=== PATIENT | female | born 1985 | race Caucasian/White ===

== ENCOUNTER 2021-07-12 08:07 | Day surgery (SDC) | payer MEDICAID ==
[2021-07-03 15:02] LABS: BASOPHILS % (AUTO) 0.6 % (0-1); EOSINOPHILS # (AUTO) 0.2 X10'3 (0-0.9); EOSINOPHILS % (AUTO) 3.1 % (0-6); LYMPHOCYTES # (AUTO) 1.6 X10'3 (1.1-4.8); LYMPHOCYTES % (AUTO) 25.5 % (21-51); MEAN CORPUSCULAR HEMOGLOBIN 26.6 PG (27.0-31.0); MEAN CORPUSCULAR HGB CONC 32.5 g/dL (33.0-36.5); MEAN CORPUSCULAR VOLUME 81.8 FL (78-98); MEAN PLATELET VOLUME 10.8 FL (7.4-10.4); MONOCYTES # (AUTO) 0.5 X10'3 (0-0.9); MONOCYTES % (AUTO) 7.8 % (2-12); NEUTROPHILS # (AUTO) 4.1 X10'3 (1.8-7.7); PRE OP HEMATOCRIT 40.9 % (35.0-45.0); PRE OP HEMOGLOBIN 13.3 g/dL (12.0-16.0); PRE OP PLATELET COUNT 240 X10'3 (140-440); RED CELL DISTRIBUTION WIDTH 12.7 % (11.5-14.5)
[2021-07-03 15:14] LABS: ALBUMIN 3.6 G/DL (3.4-5.0); ALBUMIN/GLOBULIN RATIO 0.9 (1.1-1.5); ALKALINE PHOSPHATASE 106 IU/L (46-116); BLOOD UREA NITROGEN 13 MG/DL (7-18); BUN/CREATININE RATIO 15.9 (6.6-38.0); CALCIUM 8.9 MG/DL (8.5-10.1); CHLORIDE 105 MMOL/L (99-107); CREATININE 0.82 MG/DL (0.40-0.90); PRE OP ALT 24 U/L (30-65); PRE OP ANION GAP 13 (8-16); PRE OP AST 7 U/L (10-37); PRE OP BILIRUB, TOTAL 0.2 MG/DL (0.0-1.0); PRE OP POTASSIUM 3.9 MMOL/L (3.4-5.1); PRE OP SODIUM 142 MMOL/L (135-145); TOTAL CARBON DIOXIDE 23.8 MMOL/L (24-32); TOTAL PROTEIN 7.8 G/DL (6.4-8.2); eGFR 78 ML/MIN
[2021-07-03 15:21] LABS: PRE OP GLUCOSE 219 MG/DL (70-104)
[2021-07-03 15:25] LABS: HCG SERUM QL NEGATIVE
[2021-07-12] VITALS (7 sets, daily range): BP systolic 114–136; BP diastolic 69–79
[~2021-07-12] VITALS: Ht 177.8 cm; Wt 133.4 kg
[~2021-07-12 08:07] MED LIST: ALBU18HF2 INH; BACL20TA7 PO; DIF150T PO; DOCU-345 PO; HYDR50TA65 PO; IBUP-1986 PO; METF-1203 PO; MONT-40 PO; PER5325T PO; SERT-433 PO; albuterol 2.5 MG/3 ML nebule NEB ONE; famotidine 20mg tablet PO ONE; ringers solution, lacted 1,000 ML IV SCH
[2021-07-12] MEDS ORDERED: morphine 2 MG/ML inj. syringe IV PRN (08:30)
[2021-07-12] MEDS ORDERED: ringers solution, lacted 1,000 ML IV SCH (08:30)
[2021-07-12] MEDS ORDERED: meperidine/PF 25mg/ml syringe IV PRN ×3 (08:30)
[2021-07-12] MEDS ORDERED: ondansetron/PF 4mg/2ml inj IV PRN (08:30)
[2021-07-12] MEDS ORDERED: morphine 4 MG/ML inj SYRINge IV PRN (08:30)
[2021-07-12] MEDS ORDERED: proCHLORperazine 10 MG/2 ml inj IV PRN (08:30)
[2021-07-12] MEDS ORDERED: BUPIVAcaine 0.5% inj/PF 30 ML ONE (11:37)
[2021-07-12] MEDS ORDERED: ketorolac trometh. 30mg/ml inj. ONE (11:48)
[2021-07-12] MEDS ORDERED: sevoflurane 250ml liquid IH ONE (11:48)
[2021-07-12] MEDS ORDERED: FENTANYL CITRATE/PF 50 MCG/1 ML VIAL ONE ×2 (11:54→11:55)
[2021-07-12] MEDS ORDERED: LIDOcaine 2% (20mg/ml) 5ml vial ONE (11:55)
[2021-07-12] MEDS ORDERED: propofol inj 20 ML IV ONE (11:55)
[2021-07-12] MEDS ORDERED: midazolam 1 mg/ML 2ml injection ONE (11:55)
[2021-07-12] MEDS ORDERED: dexamethasone sod phosphate 4mg/ml inj. ONE (12:03)
[2021-07-12] MEDS ORDERED: rocuronium 10mg/ml inj IV ONE (12:03)
[2021-07-12] MEDS ORDERED: ondansetron/PF 4mg/2ml inj ONE (12:05)
[2021-07-12] MEDS ORDERED: BUPIVAcaine 0.5% inj/PF 30 ml vial IJ ONE (12:29)
[2021-07-12] MEDS ORDERED: neostigmine methylsulfate 1 MG/ML 10ml vial ONE (12:59)
[2021-07-12] MEDS ORDERED: glycopyrrolate 0.2mg/ml inj ONE (12:59)
--- NOTE | 2021-07-12 13:08 | NUR ---
Received from OR via , accompanied by Anesthesiologist DR BOLDEN and report given by Anesthesiolgist. AWAKENS TO VOICE. VITALS STABLE. DRESSINGS DI. SEYMOUR PAIN. ABD SOFT.
--- NOTE | 2021-07-12 14:18 | NUR ---
AWAKE AND ORIENTED. VITALS STABLE. DRESSINGS DI. SEYMOUR PAIN. HOME WITH HER MOM AT THIS TIME.
== END 2021-07-12 14:18 | disposition home or self-care (01) ==
LOC: PAS 08:07
PROVIDERS: ATTEND Obstetrics & Gynecology
DX: Z30.2 Encounter for sterilization (principal); J45.909 Unspecified asthma, uncomplicated; F32.A Depression, unspecified; G89.29 Other chronic pain; M19.90 Unspecified osteoarthritis, unspecified site; E11.9 Type 2 diabetes mellitus without complications; K21.9 Gastro-esophageal reflux disease without esophagitis; E66.01 Morbid (severe) obesity due to excess calories; Z68.41 Body mass index [BMI] 40.0-44.9, adult; Z79.899 Other long term (current) drug therapy; Z88.7 Allergy status to serum and vaccine; Z88.8 Allergy status to other drugs, medicaments and biological substances; Z87.891 Personal history of nicotine dependence; Z98.890 Other specified postprocedural states; Z20.822 Contact with and (suspected) exposure to COVID-19; Z83.3 Family history of diabetes mellitus; Z83.6 Family history of other diseases of the respiratory system; Z82.49 Family history of ischemic heart disease and other diseases of the circulatory system; Z82.3 Family history of stroke
CPT/HCPCS: 36415; 58670; 80053; 82948; 84703; 85025; 86885; 86900; 86901; 93005; 94640; C9803; J1100; J1885; J2250; J2405; J2704; J2710; J3010; J3490; J7030; J7120; S0020; U0003; U0005; Z7506; Z7508; Z7512; A4618